=== PATIENT | female | born 1975 | race Caucasian/White ===

== ENCOUNTER 2018-12-21 19:37 | Emergency (ER) | payer MEDICAID, SELFPAY ==
[~2018-12-21] VITALS: Ht 167.6 cm; Wt 74.8 kg
[2018-12-21 19:48] VITALS: BP_SYST 109
--- NOTE | 2018-12-21 19:53 | NUR ---
Pt placed to ER waiting room in stable condition.
--- NOTE | 2018-12-21 20:35 | NUR ---
Pt placed to ER bed 07, report given to VELIA Vernon.
--- NOTE | 2018-12-21 20:38 | NUR ---
ER Dr. De La Vega at bedside examining patient.
[2018-12-21] MEDS ORDERED: NACL 0.9% 1,000 ML IV ONE (20:41)
--- NOTE | 2018-12-21 20:42 | NUR ---
Pt AAOx4 c/o 02/27 pain to R breast x 3 days r/t bilateral breast augmentation in [facility]. Pt also reports swelling to bilateral ankles. No other injuries/complaints per pt/noted. Will continue to monitor.
[2018-12-21] MEDS ORDERED: cefTRIAXone 1 GM IVPB PREMIX 50 ML IV ONE (20:45)
[2018-12-21] MEDS ORDERED: VANCOMYCIN HCL 1,000 MG in D5W 250 ML IV ONE (20:45)
[2018-12-21] MEDS ORDERED: VANCOMYCIN HCL 1000 MG/VIAL IV ONE (21:06)
--- NOTE | 2018-12-21 21:17 | NUR ---
Pt reports 8/[address] De La Vega notified and to bedside.
[2018-12-21 21:25] LABS: BASOPHILS # (AUTO) 0.1 K/uL (0.0-0.2); BASOPHILS % (AUTO) 1.2 % (0.0-2.0); EOSINOPHILS # (AUTO) 0.5 K/uL (0.0-0.4); EOSINOPHILS % (AUTO) 5.6 % (0.0-4.0); HEMATOCRIT 27.7 % (36-48); HEMOGLOBIN 9.1 g/dL (12.0-16.0); LYMPHOCYTES # (AUTO) 1.6 K/uL (1.0-5.5); LYMPHOCYTES % (AUTO) 18.8 % (20.5-51.5); MEAN CORPUSCULAR HEMOGLOBIN 28 pg (27-31); MEAN CORPUSCULAR HGB CONC 33 % (32-36); MEAN CORPUSCULAR VOLUME 86 fL (79.0-98.0); MONOCYTES # (AUTO) 0.7 K/uL (0.0-1.0); MONOCYTES % (AUTO) 7.9 % (1.7-9.3); NEUTROPHILS # (AUTO) 5.5 K/uL (1.8-7.7); NEUTROPHILS % (AUTO) 66.5 % (40.0-70.0); PLATELET COUNT (AUTO) 537 K/uL (130-430); RED BLOOD CELL COUNT(AUTO) 3.22 MIL/uL (4.2-6.2); RED CELL DISTRIBUTION WIDTH 14.1 % (9.0-15.0); WHITE BLOOD COUNT (AUTO) 8.3 K/uL (4.8-10.8)
--- NOTE | 2018-12-21 21:29 | NUR ---
Medication administered. PT tolerated well. No adverse reactions noted.
[2018-12-21] MEDS ORDERED: KETOROLAC TROMETHAMINE 30 MG VIAL IVP ONE (21:30)
[2018-12-21 21:42] LABS: CALCIUM 9.1 mg/dL (8.4-11.0); CREATININE 0.71 mg/dL (0.55-1.30); TOTAL BILIRUBIN 0.2 mg/dL (0.0-1.0)
--- NOTE | 2018-12-21 22:13 | NUR ---
PT reports continued 02/27 pain s/p toradol administration. Dr. De La Vega notified.
[2018-12-21] MEDS ORDERED: MORPHINE 4 MG/ML INJ. SYRINGE IVP ONE (22:45)
[2018-12-21] MEDS ORDERED: DIPHENHYDRAMINE INJ 50 MG/ML VIAL IVP ONE (22:45)
--- NOTE | 2018-12-21 22:52 | NUR ---
Pt ambulated to bathroom with steady gait and in nonslip shoes.
--- NOTE | 2018-12-21 23:26 | NUR ---
Patient given written and verbal discharge instructions and verbalizes understanding. ER MD De La Vega discussed with patient the results and treatment provided. Patient in stable condition. ID arm band removed. Rx of Augmentin, Tramadol given. Patient educated on pain management and to follow up with PMD. Pain Scale 1. Dr. De La Vega aware. Opportunity for questions provided and answered. Medication side effect fact sheet provided. Awaiting transportation (sister). Will continue to monitor.
[2018-12-22 00:16] VITALS: BP_SYST 111
== END 2018-12-22 00:16 | disposition home or self-care (01) ==
LOC: SED 19:37
DX: T81.49XA Infection following a procedure, other surgical site, initial encounter (principal); Y92.89 Other specified places as the place of occurrence of the external cause
CPT/HCPCS: 36415; 80053; 83605; 85025; 87040; 96365; 96368; 96375; 99283; J0696; J1200; J1885; J2270; J3370; J7030

== ENCOUNTER 2018-12-27 19:37 | Emergency (ER) | payer MEDICAID ==
[~2018-12-27] VITALS: Ht 167.6 cm; Wt 74.8 kg
[2018-12-27 19:47] VITALS: BP_SYST 106
[2018-12-27] MEDS ORDERED: KETOROLAC TROMETHAMINE 30 MG VIAL IM ONE (20:15)
[2018-12-27] MEDS ORDERED: IBUPROFEN 800 MG TABLET PO ONE (21:00)
[2018-12-27 22:25] VITALS: BP_SYST 108
== END 2018-12-27 22:25 | disposition home or self-care (01) ==
LOC: SED 19:37
DX: Z42.1 Encounter for breast reconstruction following mastectomy (principal)
CPT/HCPCS: 76641; 99284; J1885

== ENCOUNTER 2019-03-10 22:15 | Emergency (ER) | payer MEDICAID ==
[~2019-03-10] VITALS: Ht 167.6 cm; Wt 70.3 kg
[2019-03-10 22:21] VITALS: BP_SYST 143
--- NOTE | 2019-03-10 22:23 | NUR ---
Patient to ER bed H1 for evaluation. Side rails up. Report given to Annette GUNN.
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
--- NOTE | 2019-03-10 22:55 | NUR ---
Written and verbal consent obtained from patient for blood alcohol, name and verified by patient. Disinfected patient's skin with iodine that did not contain alcohol or other volatile organic compound. Collected the blood from the subject named by venipuncture, in the presence of Officer Derek [id number]. Used a sterile, dry hypodermic needle and dry vacuum blood collection. Two dry vacuum blood collection was supplied by the officer named above. Withdrew a specimen of blood from RAC of the subject named above. Inverted both blood tube several times to ensure that the preservative and anticoagulant were thoroughly mixed in the blood specimen. I initialed both blood tube label for identification. The labeled blood tubes was handed directly to the Officer named above. The blood tubes stopper remained in place while I had possession of the blood tubes. The Officer placed tubes into envelope and sealed it in my presence. Envelope initialed by myself and Officer named above. Patient tolerated well, bandage applied, and bleeding controlled.
[2019-03-10] MEDS ORDERED: KETOROLAC TROMETHAMINE 30 MG VIAL IVP ONE (23:15)
[2019-03-10] MEDS ORDERED: DIPH-TET-PERTUS Vaccine 0.5 ML VIAL (ADACEL) I.M. ONE (23:15)
--- NOTE | 2019-03-10 23:35 | NUR ---
# 20 gauge angiocath placed to RAC. Use of asceptic technique. Opsite placed over site. Blood return noted. Flushed with 10 cc of normal saline. No evidence of infiltration noted. Patient tolerated well.
--- NOTE | 2019-03-10 23:43 | NUR ---
Consent for CT abdomen/pelvis with contrast signed and placed in chart.
[2019-03-11] MEDS ORDERED: IOHEXOL 100 ML IV ONE (00:10)
[2019-03-11 00:35] LABS: BASOPHILS # (AUTO) 0.1 K/uL (0.0-0.2); BASOPHILS % (AUTO) 0.8 % (0.0-2.0); EOSINOPHILS # (AUTO) 0.1 K/uL (0.0-0.4); EOSINOPHILS % (AUTO) 0.8 % (0.0-4.0); HEMATOCRIT 39.1 % (36-48); LYMPHOCYTES # (AUTO) 1.8 K/uL (1.0-5.5); LYMPHOCYTES % (AUTO) 22.1 % (20.5-51.5); MEAN CORPUSCULAR HEMOGLOBIN 27 pg (27-31); MEAN CORPUSCULAR HGB CONC 33 % (32-36); MEAN CORPUSCULAR VOLUME 81 fL (79.0-98.0); MONOCYTES # (AUTO) 0.4 K/uL (0.0-1.0); MONOCYTES % (AUTO) 4.6 % (1.7-9.3); NEUTROPHILS # (AUTO) 5.7 K/uL (1.8-7.7); NEUTROPHILS % (AUTO) 71.7 % (40.0-70.0); PLATELET COUNT (AUTO) 194 K/uL (130-430); RED BLOOD CELL COUNT(AUTO) 4.83 MIL/uL (4.2-6.2); RED CELL DISTRIBUTION WIDTH 18.8 % (9.0-15.0)
[2019-03-11 00:37] LABS: BILIRUBIN,URINE NEGATIVE (NEGATIVE); BLOOD, URINE 1+ (NEGATIVE); CLARITY/URINE CLEAR (CLEAR); COLOR,URINE YELLOW (YELLOW); GLUCOSE,URINE NEGATIVE (NEGATIVE); KETONES,URINE NEGATIVE (NEGATIVE); LEUKOCYTE ESTERASE ,URINE NEGATIVE (NEGATIVE); NITRITE, URINE NEGATIVE (NEGATIVE); PROTEIN URINE NEGATIVE (NEGATIVE); UROBILINOGEN,URINE 0.2 (0.2-1.0)
[2019-03-11 00:59] LABS: ANION GAP 14 (5-15); CALCIUM 8.3 mg/dL (8.4-11.0); CHLORIDE 108 mmol/L (98-107); CREATININE 0.79 mg/dL (0.55-1.30); GLUCOSE 85 mg/dL (70-99); POTASSIUM 4.1 mmol/L (3.5-5.1); SODIUM SERUM 144 mmol/L (136-145); UREA NITROGEN, BLOOD 14 mg/dL (8-21)
[2019-03-11 01:00] LABS: BACTERIA,URINE RARE /HPF (None Seen); URIC ACID CRYSTALS,URINE 30-50 /HPF (None Seen); WBC,URINE 0-3 /HPF (0-3)
[2019-03-11 01:08] LABS: ALANINE AMINOTRANSFERASE 14 U/L (12-78); ALBUMIN 3.9 g/dL (3.4-4.8); ALCOHOL, BLOOD 147 mg/dL (<10); ASPARTATE AMINOTRANSFERASE 17 U/L (10-37); TOTAL BILIRUBIN 0.1 mg/dL (0.0-1.0)
[2019-03-11 01:09] LABS: GFR AFRICAN AMERICAN 103 mL/min (>90)
--- NOTE | 2019-03-11 01:35 | NUR ---
ER at bedside examining patient.
[2019-03-11] MEDS ORDERED: MORPHINE 4 MG/ML INJ. SYRINGE IVP ONE (01:45)
[2019-03-11] MEDS ORDERED: BACITRACIN 1 GM OINT TP ONE (01:45)
--- NOTE | 2019-03-11 02:00 | NUR ---
patient given medication as ordered. patient tolerated well. no other s/sx of pain at this time
--- NOTE | 2019-03-11 03:05 | NUR ---
spoke to Bhargavi from [employer]. [phone]. Bhargavi stated their doctor recommends a Trauma recieving facility. Bhargavi stated she will call back once they have found one.
--- NOTE | 2019-03-11 03:54 | NUR ---
Dr. Blackburn bedside for Pt update and re-eval
--- NOTE | 2019-03-11 04:50 | NUR ---
S/W Bhargavi Coordinator from [employer]. She stated that she is still waiting for a bed assignment, however, the Authorization for Ambulance Transport is: [id number]. They're contracted with [employer], however, the authorization number will pay for other company if [facility] is not available
[2019-03-11] MEDS ORDERED: KETAMINE 30 MG/3 ML SYRINGE IVP ONE (06:00)
--- NOTE | 2019-03-11 06:21 | NUR ---
S/W Skye from [facility], Pt will be transferred to [facility], MedSur Unit Room 306A under the care of Dr. Reed
--- NOTE | 2019-03-11 06:37 | NUR ---
Report given to [facility] emergency department coordinator Annette taking care of Room 306A. Dr. Reed aware, [facility] ETA 30 - 35 min
--- NOTE | 2019-03-11 06:40 | NUR ---
VSS, no s/s of acute distress. Resting on gurney with rails up. Pt has been updated on Transfer / consented to be transferred
--- NOTE | 2019-03-11 07:20 | NUR ---
Patient to be transferred to [facility]. Is being transferred due to higher level of care. Receiving facility has accepting physician and available space. ER physician has signed transfer form. Patient or responsible constitution party has agreed to transfer and signed form. Patient belongings inventoried and will be sent with patient. Copy of nursing notes, lab reports, EKG, Physicians Orders and X-rays to be sent with patient. Report called at receiving facility. Receiving physician is Dr. Manning. Report was given to spencer from [facility]. Patient leaving now to [facility] in stable condition.
[2019-03-11 07:25] VITALS: BP_SYST 111
== END 2019-03-11 07:20 | disposition short-term general hospital (02) ==
LOC: SED 22:15
DX: R10.11 Right upper quadrant pain (principal); F10.129 Alcohol abuse with intoxication, unspecified; V89.2XXA Person injured in unspecified motor-vehicle accident, traffic, initial encounter; Y93.89 Activity, other specified; Y92.89 Other specified places as the place of occurrence of the external cause; Y99.8 Other external cause status; Y90.6 Blood alcohol level of 120-199 mg/100 ml
CPT/HCPCS: 36415; 71260; 73090; 74177; 80053; 81000; 81025; 82550; 84484; 84703; 85025; 90471; 90715; 93005; 96374; 96375; 99285; G0482; J1885; J2270; Q9967